=== PATIENT | male | born 1945 | race African-American/Black ===

== ENCOUNTER 2017-12-25 08:33 | Inpatient (IN) | payer MEDICARE ==
[2017-12-25] VITALS (14 sets, daily range): BP systolic 98–122; BP diastolic 63–93; BMI 33.9
[~2017-12-25] VITALS: Ht 185.4 cm; Wt 115.5 kg
--- NOTE | ~2017-12-25 | HEMODYNAMI ---
PATIENT:HELEN BROWN MEDICAL RECORD: [id number] : 47 LOCATION[facility] [address] [id number] ADMISSION DATE: 12/25/17 Generatedon:12/28/201712:57 Patient name: HELEN BROWN Patient #: [id number] SSN: : 1945 Date of study: 12/28/2017 Page: Of Hemodynamic Procedure Report Patient Data Patient Demographics Procedure consent was obtained First Name: HELEN Gender: Male Last Name: KEVIN : 1945 Patient #: [id number] Age: 72 year(s) Race: Black Additional ID: [id number] Contact details Address: [address] [place] [address] [employer] State: [place] City: [place] Zip code: [address] Past Medical History Allergies: No known allergies Admission Admission Data Admission Date: 12/25/2017 Admission Time: 11:13 Room #: D.2309 Lab Results Lab Result Date: 12/28/2017 Lab Result Time: 0:00 Biochemistry Name Units Result Min Max BUN mg/dl 19.3 --(----)*- 7 18 Creatinine mg/dl 42 --(----)-* 0.6 1.3 CBC Name Units Result Min Max Hematocrit % 33.8 *-(----)-- 42 54 Hemoglobin g/dl 11 *-(----)-- 13.5 17.5 Procedure Procedure Types Cath Procedure Diagnostic Procedure C [facility] w/Coronaries PCI Procedure Coronary Stent Coronary Stent Initial Procedure Description Procedure Date Procedure Date: 12/28/2017 Procedure Start Time: 12:38 Procedure End Time: 12:56 Procedure Staff Name Function Alo Daily MD Performing Physician Eduar Segura RT Monitor Jolene Gallo RT Scrub See Deras RN Nurse Procedure Data Cath Procedure Fluoroscopy Diagnostic fluoroscopy Total fluoroscopy Time: 3.5 time: 3.5 min min Diagnostic fluoroscopy Total fluoroscopy dose: 664 dose: 664 mGy mGy Contrast Material Contrast Material Type Amount (ml) Isovue 300 82 Entry Location Entry Primary Successful Side Size Upsize Upsize Entry Closure Succes sful Closure Location (Fr) 1 (Fr) 2 (Fr) Remarks Device Remarks Femoral Right 5 Fr 6 Fr Exoseal artery Short Estimated blood loss: 10 ml Diagnostic catheters Device Type Used For End Catheter Placement MULTIPACK Pigtail 5 Fr Procedure catheter MULTIPACK JL 4.0 5Fr Procedure catheter MULTIPACK 3DRC 5Fr Procedure catheter DIAGNOSTIC JL 5 5Fr Procedure catheter ([id number]) DIAGNOSTIC AR 1 MOD 5Fr Procedure catheter ([id number]) Procedure Complications No complications Procedure Medications Medication Administration Route Dosage Oxygen etCO2 Nasal cannula 2 l/min Heparin Flush Bag added to field 2 bags (1000units/500ml NS) 0.9% NaCl I.V. 100 ml/hr Fentanyl I.V. 50 mcg Versed I.V. 1 mg Fentanyl I.V. 50 mcg Versed I.V. 1 mg Heparin Bolus I.V. 4000 units Integrilin (Bolus I.V. 10.7 ml 2mg/ml) Integrilin (Bolus wasted 9.3 ml 2mg/ml) Plavix P.O. 600 mg Hemodynamics Rest HGB: 11 (g/dl) Heart Rate: 59 (bpm) Snapshots Pre Cath Intra NCS Post Cath Vital Signs Time Heart Resp SPO2 etCO2 NIBP (mmHg) Rhythm Pain Sedation Rate (ipm) (%) (mmHg) Status Level (bpm) 12:21:35 58 17 0 169/83(121) NSR 0 (11) 10(A) , No pain 12:26:26 59 16 0 164/80(110) NSR 0 (11) 10(A) , No pain 12:31:14 59 16 32.2 167/81(111) NSR 0 (11) 10(A) , No pain 12:36:03 60 16 100 38.9 159/76(115) NSR 0 (11) 10(A) , No pain 12:40:43 61 15 100 32.2 138/69(95) NSR 0 (11) 10(A) , No pain 12:45:28 60 16 100 32.9 148/65(102) NSR 0 (11) 9(A) , No pain 12:50:46 60 17 100 37.4 139/73(100) NSR 0 (11) 9(A) , No pain 12:55:28 60 16 100 0 156/69(104) NSR 0 (11) 10(A) , No pain Medications Time Medication Route Dose Verified Delivered Reason Notes Effectiveness by by 12:24:59 Oxygen etCO2 2 Alo Cui Per physician Nasal l/min Abimbola Deras RN cannula 12:25:09 Heparin Flush added 2 Alo Cui used for Bag to bags Abimbola Deras RN procedure (1000units/500ml field NS) 12:25:17 0.9% NaCl I.V. 100 Alo Cui Per physician ml/hr Abimbola Deras RN 12:36:52 Fentanyl I.V. 50 Alo Cui for sedation mcg Abimbola Deras RN 12:36:58 Versed I.V. 1 mg Alo Cui for sedation Abimbola Deras RN 12:39:16 Fentanyl I.V. 50 Alo Cui for sedation mcg Abimbola Deras RN 12:39:20 Versed I.V. 1 mg Alo Cui for sedation Abimbola Deras RN 12:48:52 Heparin Bolus I.V. 4000 Alo Cui for units Abimbola Deras RN anticoagulation 12:49:05 Integrilin I.V. 10.7 Alo Cui for (Bolus 2mg/ml) ml Abimbola Deras RN antiplatelet therapy 12:52:43 Integrilin wasted 9.3 Alo Cui for (Bolus 2mg/ml) ml Abimbola Deras RN antiplatelet therapy 12:56:51 Plavix P.O. 600 Alo Cui for mg Abimbola Deras RN antiplatelet therapy Procedure Log Time Note 11:58:26 Diagnostic Cath status Elective 11:58:28 See Deras RN sent for patient. Start room use. 11:58:29 Time tracking: Regular hours 11:58:32 Plan of Care:Hemodynamics will remain stable., Cardiac rhythm will remain stable., Comfort level will be maintained., Respiratory function will remain adequate., Patient/ family verbilizes understanding of procedure., Procedure tolerated without complication., Recovers from procedure without complications.. 12:14:17 Patient received from ICU to CCL 1 Alert and oriented. Tansferred to table in Supine position. 12:14:19 Warm blankets applied, and emile hugger turned on for patient comfort. 12::19 Correct patient and procedure confirmed by team. 12::20 Signed procedure consent form obtained from patient. 12::22 ECG and BP/O2 sat monitors applied to patient. 12::23 Full Disclosure recording started 12:20:33 Vital chart was started 12:22:12 Baseline sample Acquired. 12:24:41 Rhythm: sinus rhythm 12:24:59 Oxygen 2 l/min etCO2 Nasal cannula was administered by See Deras RN; Per physician; 12:25:09 Heparin Flush Bag (1000units/500ml NS) 2 bags added to field was administered by See Deras RN; used for procedure; 12::17 0.9% NaCl 100 ml/hr I.V. was administered by See Deras RN; Per physician; 12:27:07 H&P Date Dictated: 12/25/2017 Within 30 days and on chart., H&P Addendum completed by physician on day of procedure. (MUST COMPLETE FOR ALL OUTPATIENTS). 12:27:09 Pre-procedure instructions explained to patient. 12:27:09 Pre-op teaching completed and patient verbalized understanding. 12:27:30 Family in waiting room. 12:27:33 Patient NPO since Midnight. 12:27:42 Patient allergic to No known allergies 12:27:48 Is the patient allergic to Iodine/contrast media? No. 12:27:50 Is patient on blood thinner?No 12:27:53 Patient diabetic? No. 12:27:56 Previous problem with sedation/anesthesia? No ? 12:27:57 Snore? Yes 12:27:59 Sleep apnea? No 12:28:00 Deviated septum? No 12:28:00 Opens mouth fully? Yes 12:28:01 Sticks out tongue? Yes 12:28:03 Airway obstruction? No ? 12:28:04 Dentures? No ? 12:28:08 Pre procedure: right dorsailis pedis pulse 1+ Palpable, but thready & weak; easily obliterated 12:28:10 Patient pain scale 0/10 ?. 12:28:13 IV patent on arrival in right antecubital with 0.9% NaCl at [facility]. 12:32:20 Lab Result : Creatinine 42 mg/dl 12:32:20 Lab Result : BUN 19.3 mg/dl 12:32:21 Lab Result : Hemoglobin 11 g/dl 12:32:21 Lab Result : Hematocrit 33.8 % 12:32:23 Lab results completed and on chart. 12:32:26 Right groin area was prepped with chlora-prep and draped in sterile fashion 12:32:27 Alarms reviewed by R. N. 12:32:27 Sharps counted by scrub and verified by R.N. 12:32:29 Use device set Femoral Dx 12:32:30 ACIST Syringe (21647) opened to sterile field. 12:32:31 Bag Decanter (2002S) opened to sterile field. 12:32:31 Medline Cath Pack ([id number]) opened to sterile field. 12:32:33 ACIST Hand Control (22727) opened to sterile field. 12:32:33 ACIST Manifold (07619) opened to sterile field. 12:32:35 Tegaderm 4 x 4 (1626W) opened to sterile field. 12:32:35 PERCUTANEOUS ENTRY 19GA needle opened to sterile field. 12:32:36 DIAGNOSTIC Multipack 5Fr catheter set (OU2353) opened to sterile field. 12:32:37 DIAGNOSTIC WIRE .035 260cm J wire (817066) opened to sterile field. 12:32:49 IV Extension Set opened to sterile field. 12:32:58 SHEATH 5Fr Prelude ([id number]) opened to sterile field. 12:33:01 Zero performed for pressure channel P1 12:36:34 Physician arrived 12:36:35 --------ALL STOP TIME OUT------ 12:36:35 Final Timeout: patient, procedure, and site verified with staff and physician. All members of the team are in agreement. 12:36:42 Right groin site verified by team. 12:36:47 Physical assessment completed. ASA score P 2 - A patient with mild systemic disease as per Alo Daily MD. 12:36:52 Fentanyl 50 mcg I.V. was administered by See Deras RN; for sedation; 12:36:52 Sedation plan: IV Moderate Sedation Medication:Versed, Fentanyl 12:36:58 Versed 1 mg I.V. was administered by See Deras RN; for sedation; 12:37:58 Procedure started. 12:38:49 Local anesthetic to right femoral artery with Lidocaine 2% by Alo Daily MD.INITIAL ACCESS ONLY 12:38:57 A 5 Fr sheath was inserted into the Right Femoral artery 12:39:16 Fentanyl 50 mcg I.V. was administered by See Deras RN; for sedation; 12:39:16 A MULTIPACK Pigtail 5 Fr catheter was advanced over the wire and used for Procedure. 12:39:20 Versed 1 mg I.V. was administered by See Deras RN; for sedation; 12:39:31 LV gram done using DARLING 12:39:33 Injector settings: Ml/sec: 10, Volume: 20, 12:39:51 EF : 40 % 12:39:56 Catheter exchanged over wire. 12:40:09 A MULTIPACK JL 4.0 5Fr catheter was advanced over the wire and used for Procedure. 12:40:40 Catheter exchanged over wire. 12:41:45 A MULTIPACK 3DRC 5Fr catheter was advanced over the wire and used for Procedure. 12:41:59 Catheter exchanged over wire. 12:42:19 A DIAGNOSTIC JL 5 5Fr catheter ([id number]) was advanced over the wire and used for Procedure. 12:43:41 LCA angiography performed. 12:44:00 A DIAGNOSTIC AR 1 MOD 5Fr catheter ([id number]) was advanced over the wire and used for Procedure. 12:44:22 SHEATH 6Fr Prelude ([id number]) opened to sterile field. 12:44:23 INFLATOR Merit BasixCompak (FW2010) opened to sterile field. 12:44:31 CHOICE PT Extra Support 182cm wire ([id number]) opened to sterile field. 12:45:37 Catheter removed. 12:45:47 Sheath upsized to a 6 Fr Short. 12:46:11 GUIDE 6FR AR 2.0 catheter (HM0LS23) opened to sterile field. 12:46:16 6 Fr ar 2 guide catheter was inserted over the wire 12:47:23 choice pt wire advanced. 12:47:31 Wire advanced across lesion. 12:48:52 Heparin Bolus 4000 units I.V. was administered by See Deras RN; for anticoagulation; 12:49:05 Integrilin (Bolus 2mg/ml) 10.7 ml I.V. was administered by See Deras RN; for antiplatelet therapy; 12:49:13 Inflation Number: 1 A GODWIN RX 4.0 x 18 stent ([id number]) was prepped and advanced across the Undefined1. The stent was deployed at 13 JENSEN for 0:10 (min:sec). 12:49:33 Stent catheter was removed intact over wire. 12:49:34 Wire removed. 12:49:35 Guide catheter removed. 12:49:41 EXOSEAL 6Fr (EX600) opened to sterile field. 12:49:53 Sheath removed intact; hemostasis achieved with Exoseal to the Right Femoral artery. 12:49:55 Procedure ended.(Physican Out) 12:50:26 Fluoroscopy time 03.50 minutes. 12:50:30 Fluoroscopy dose: 664 mGy 12:50:30 Flurop Dose total: 664 12:52:43 Integrilin (Bolus 2mg/ml) 9.3 ml wasted was administered by See Deras RN; for antiplatelet therapy; 12:53:38 Contrast amount:Isovue 300 82ml. 12:53:41 Sharps counted by scrub and verified by R.N. 12:53:42 Insertion/operative site no bleeding no hematoma. 12:53:45 Post-op/insertion site Right Femoral artery dressed using a 4 x 4 and Tegaderm. 12:53:49 Post right femoral artery:stable, soft, clean and dry 12:53:51 Post Procedure Pulses reassessed and unchanged 12:53:53 Post-procedure physical assessment completed. ASA score P 2 - A patient with mild systemic disease as per Alo Daily MD. 12:53:58 Post procedure rhythm: unchanged. 12:54:01 Estimated blood loss: 10 ml 12:54:03 Post procedure instruction explained to patient.Patient verbalizes understanding. 12:54:04 Patient needs reinforcement of post procedure teaching. 12:54:14 Procedure type changed to Cath procedure, Diagnostic procedure, LHC, LHC w/Coronaries, PCI procedure, Coronary Stent, Coronary Stent Initial 12:55:50 Procedure and supply charges have been captured, reviewed, submitted and are correct. 12:55:52 Procedure Complication : No complications 12:55:54 Vital chart was stopped 12:55:54 See physician's report for complete and final results. 12:56:03 Report given to ICU. 12:56:06 Patient transfered to ICU with Stretcher. 12:56:08 Procedure ended. 12:56:08 Full Disclosure recording stopped 12:56:19 End room use (Document Last) 12:56:51 Plavix 600 mg P.O. was administered by See Deras RN; for antiplatelet therapy; Intervention Summary Intervention Notes Time ActionType Lesion and Equipment Used Action# Pressure Duration Attributes 12:49:13 Place stent Undefined1 GODWIN RX 4.0 x 1 13 00:10 18 stent ([id number]) Device Usage Item Name Manufacture Quantity Catalog Number Hospital Part Current M inimal Lot# / Charge Number Stock Stock Serial# Code ACIST Syringe Acist 1 94382 854650 162876 213957 2 0 (46752) [employer] Bag Decanter Microtek 1 2001S 759871 71038 367773 5 () Medical Inc. Medline Cath Cardinal 1 [id number] 623186 64190 600919 5 Pack Health ([id number]) ACIST Hand Acist 1 62761 892019 038799 057827 5 Control Medical (32129) Systems Inc ACIST Manifold Acist 1 10846 184115 688455 422455 5 (44676) Medical Systems Inc Tegaderm 4 x 4 3M 1 1626W 265521 793552 130489 5 (1626W) PERCUTANEOUS Cook Medical 1 F88714 944956 496188 5 ENTRY 19GA needle DIAGNOSTIC Cardinal 1 JN0817 592778 73668 854397 3 0 Multipack 5Fr Health catheter set (NP4149) DIAGNOSTIC St Navarro 1 131167 929631 612348 430767 3 0 WIRE .035 260cm J wire (696947) IV Extension Hospira 1 49284-95 433568 79851 675288 5 Set SHEATH 5Fr Merit 1 [id number] 726457 815796 957809 5 Prelude Medical ([id number]) MULTIPACK Cardinal 1 828603 5 Pigtail 5 Fr Health catheter MULTIPACK JL Cardinal 1 328989 5 4.0 5Fr Health catheter MULTIPACK 3DRC Cardinal 1 964485 5 5Fr catheter Health DIAGNOSTIC JL Cardinal 1 [id number] 171380 973655 822058 5 5 5Fr catheter Health (764018H) DIAGNOSTIC AR Cardinal 1 [id number] 339769 638932 919479 1 5 1 MOD 5Fr Health catheter (302043W) SHEATH 6Fr Merit 1 [id number] 033028 755656 530726 5 Prelude Medical ([id number]) INFLATOR Merit Merit 1 TZ7016 109625 061204 015309 1 5 [facility] (PA5019) CHOICE PT [place] 1 [id number] 402124 311105 064395 5 Extra Support Scientific 182cm wire (2214742Z0) GUIDE 6FR AR Medtronic 1 [id number] 973818 42315 099378 1 2.0 catheter (GK0FF26) GODWIN RX 4.0 x Medtronic 1 [id number] 537769 2066173 401650 5 [id number] 18 stent ([id number]) EXOSEAL 6Fr Cardinal 1 EX600 956114 666340 135709 1 0 (EX600) Health Signature Audit [place] Stage Time Signature Unsigned Intra-Procedure 12/28/2017 Eduar Segura 12:57:38 PM RT(R) Signatures Monitor : Eduar Segura RT Signature : Date : Time : [id number] [place] [address]
--- NOTE | ~2017-12-25 | HEMODYNAMI ---
PATIENT:HELEN BROWN MEDICAL RECORD: [id number] : 47 [address] [id number] ADMISSION DATE: 12/25/17 Generatedon:12/29/201712:47 Patient name: HELEN BROWN Patient #: [id number] SSN: : 1945 Date of study: 12/29/2017 Page: Of Hemodynamic Procedure Report Patient Data Patient Demographics Procedure consent was obtained First Name: HELEN Gender: Male Last Name: KEVIN : 1945 Patient #: [id number] Age: 72 year(s) Race: Black Additional ID: [id number] Contact details Address: [address] [place] [address] [place] State: [place] City: [place] Zip code: [address] Past Medical History Allergies: No known allergies Admission Admission Data Admission Date: 12/25/2017 Admission Time: 11:13 Room #: 2121 Lab Results Lab Result Date: 12/28/2017 Lab Result Time: 0:00 Biochemistry Name Units Result Min Max BUN mg/dl 19.3 --(----)*- 7 18 Creatinine mg/dl 42 --(----)-* 0.6 1.3 CBC Name Units Result Min Max Hematocrit % 33.8 *-(----)-- 42 54 Hemoglobin g/dl 11 *-(----)-- 13.5 17.5 Procedure Procedure Types Cath Procedure Diagnostic Procedure Sedation Charges Moderate Sedation up to 15 minutes PCI Procedure Coronary Stent Coronary Stent Initial Procedure Description Procedure Date Procedure Date: 12/29/2017 Procedure Start Time: 12:30 Procedure End Time: 12:44 Procedure Staff Name Function Alo Daily MD Performing Physician James Ayers RT Monitor Karl Kelly RN Nurse Magnolia Cartwright RT Scrub Eileen Aburto RT Monitor Procedure Data Cath Procedure Fluoroscopy Diagnostic fluoroscopy Total fluoroscopy Time: 2.5 time: 2.5 min min Diagnostic fluoroscopy Total fluoroscopy dose: 440 dose: 440 mGy mGy Contrast Material Contrast Material Type Amount (ml) Isovue 300 59 Entry Location Entry Primary Successful Side Size Upsize Upsize Entry Closure Succes sful Closure Location (Fr) 1 (Fr) 2 (Fr) Remarks Device Remarks Femoral Right 6 Fr Exoseal artery Short Estimated blood loss: 10 ml Procedure Complications No complications Procedure Medications Medication Administration Route Dosage Oxygen NC 2 l/min Lidocaine 2% added to field 20 Heparin Flush Bag added to field 2 bags (1000units/500ml NS) 0.9% NaCl I.V. 100 ml/hr Versed I.V. 1 mg Fentanyl I.V. 50 mcg Heparin Bolus I.V. 4000 units Versed I.V. 1 mg Fentanyl I.V. 50 mcg Hemodynamics Rest HGB: 11 (g/dl) Heart Rate: 72 (bpm) Snapshots Pre Cath Intra NCS Post Cath Vital Signs Time Heart Resp SPO2 etCO2 NIBP (mmHg) Rhythm Pain Sedation Rate (ipm) (%) (mmHg) Status Level (bpm) 12:14:06 71 16 96 0 147/75(114) NSR 0 (11) 10(A) , No pain 12:20:25 71 14 97 0 131/73(113) NSR 0 (11) 10(A) , No pain 12:24:39 73 17 96 0 146/73(112) NSR 0 (11) 10(A) , No pain 12:28:55 74 17 95 0 134/68(91) NSR 0 (11) 10(A) , No pain 12:33:11 74 15 95 0 127/68(90) NSR 0 (11) 9(A) , No pain 12:37:17 74 16 96 0 100/89(99) NSR 0 (11) 9(A) , No pain 12:42:03 74 19 96 0 149/76(105) NSR 0 (11) 10(A) , No pain Medications Time Medication Route Dose Verified Delivered Reason Notes Effectiveness by by 12:15:27 Oxygen NC 2 Alo Buffie used for l/min [facility]imbola Kelly rn hospital 12:15:34 Lidocaine 2% added 20ml Alo Prajapati for local to vial Abimbola Daily MD anesthetic field 12:15:40 Heparin Flush added 2 Alo Jasmineie used for Bag to bags [facility]imbola Kelly rn hospital (1000units/500ml field NS) 12:15:48 0.9% NaCl I.V. 100 Alo Barajas Per physician ml/hr Abimbola Kelly RN 12:28:55 Versed I.V. 1 mg Alo Jasmineie for sedation Abimbola Kelly RN 12:29:01 Fentanyl I.V. 50 Alo Kenroyie for sedation mcg Abimbola Kelly RN 12:33:44 Heparin Bolus I.V. 4000 Alo Jasmineie for verifi ed units Abimbola Kelly RN anticoagulation with dr daily 12:35:50 Versed I.V. 1 mg Alo Jasmineie for sedation Abimbola Kelly RN 12:35:53 Fentanyl I.V. 50 Alo Jasmineie for sedation mcg Abimbola Kelly RN Procedure Log Time Note 12:09:27 Informed consent obtained and on chart 12:10:02 PCI Cath Status : Elective 12:11:00 James Ayers RT(R) (CV) sent for patient. Start room use. 12:11:07 Time tracking: Regular hours 12:11:12 Plan of Care:Hemodynamics will remain stable., Cardiac rhythm will remain stable., Comfort level will be maintained., Respiratory function will remain adequate., Patient/ family verbilizes understanding of procedure., Procedure tolerated without complication., Recovers from procedure without complications.. 12:11:25 Patient received from PCU to CCL 2 Alert and oriented. Tansferred to table in Supine position. 12:11:49 Warm blankets applied, and emile hugger turned on for patient comfort. 12:11:49 Correct patient and procedure confirmed by team. 12:11:51 ECG and BP/O2 sat monitors applied to patient. 12:11:51 Vital chart was started 12:11:52 Baseline sample Acquired. 12:12:10 Rhythm: sinus rhythm 12:12:17 BBB 12:12:21 Full Disclosure recording started 12:12:50 H&P Date Dictated: 12/27/2017 Within 30 days and on chart.. 12:12:54 Pre-procedure instructions explained to patient. 12:12:54 Pre-op teaching completed and patient verbalized understanding. 12:12:57 Family in patients room. 12:13:00 Patient NPO since Breakfast. 12:13:11 Patient allergic to No known allergies 12:13:14 Is the patient allergic to Iodine/contrast media? No. 12:13:19 Is patient on blood thinner?Yes 12:13:29 ACC The patient was administered the following blood thiners within the last 24 hours: ACCPlavix 12:13:44 Patient diabetic? No. 12:13:51 ----Pre-sedation anethsthesia assessment.---- 12:13:54 Previous problem with sedation/anesthesia? No ? 12:13:56 Snore? Yes 12:13:58 Sleep apnea? No 12:14:00 Deviated septum? No 12:14:01 Opens mouth fully? Yes 12:14:01 Sticks out tongue? Yes 12:14:04 Airway obstruction? No ? 12:15:27 Oxygen 2 l/min NC was administered by Karl Kelly RN; used for procedure; 12:15:34 Lidocaine 2% 20ml vial added to field was administered by Alo Daily MD; for local anesthetic; 12:15:40 Heparin Flush Bag (1000units/500ml NS) 2 bags added to field was administered by Karl Kelly RN; used for procedure; 12:15:48 0.9% NaCl 100 ml/hr I.V. was administered by Karl Kelly RN; Per physician; 12:19:51 Patient pain scale 0/10 ?. 12:20:00 IV patent on arrival in right antecubital with 0.9% NaCl at [facility]. 12:20:07 Left groin area was prepped with chlora-prep and draped in sterile fashion 12:20:09 Alarms reviewed by R. N. 12:20:10 Sharps counted by scrub and verified by R.N. 12:20:22 Use device set ABIMBOLA PCI 12:21:00 INFLATOR Merit BasixCompak ([id number]) opened to sterile field. 12:22:20 SHEATH 6Fr Prelude ([id number]) opened to sterile field. 12:22:49 Medline Cath Pack ([id number]) opened to sterile field. 12:23:05 Use device set CATH PACK 12:23:19 DIAGNOSTIC WIRE .035 260cm J wire ([id number]) opened to sterile field. 12:23:20 Bag Decanter (2002S) opened to sterile field. 12:23:25 ACIST Manifold (55732) opened to sterile field. 12:23:26 ACIST Hand Control (37594) opened to sterile field. 12:23:28 ACIST Syringe (12233) opened to sterile field. 12:26:15 Zero performed for pressure channel P1 12::37 Zero performed for pressure channel P1 12:27:08 Physician arrived 12::09 --------ALL STOP TIME OUT------ 12:27:10 Final Timeout: patient, procedure, and site verified with staff and physician. All members of the team are in agreement. 12:27:16 Left groin site verified by team. 12:27:20 Physical assessment completed. ASA score P 2 - A patient with mild systemic disease as per Alo Daily MD. 12:27:25 Sedation plan: IV Moderate Sedation Medication:Versed, Fentanyl 12:28:55 Versed 1 mg I.V. was administered by Karl Kelly RN; for sedation; 12:29:01 Fentanyl 50 mcg I.V. was administered by Karl Kelly RN; for sedation; 12:29:32 Procedure started. 12:30:38 Local anesthetic to left femerol artery with Lidocaine 2% by Alo Daily MD.INITIAL ACCESS ONLY 12:31:16 GUIDE 6FR EBU 4.5 catheter ([id number]) opened to sterile field. 12:31:29 A 6 Fr Short sheath was inserted into the Right Femoral artery 12:31:58 CHOICE PT Extra Support 182cm wire ([id number]) opened to sterile field. 12:32:21 6 Fr ebu 4.5 guide catheter was inserted over the wire 12:32:29 eEX SUPPORT wire advanced. 12:32:54 Wire advanced across lesion. 12:33:44 Heparin Bolus 4000 units I.V. was administered by Karl Kelly RN; for anticoagulation; verified with dr daily 12:35:50 Versed 1 mg I.V. was administered by Karl Kelly RN; for sedation; 12:35:53 Fentanyl 50 mcg I.V. was administered by Karl Kelly RN; for sedation; 12:38:19 Inflation Number: 1 A INTEGRITY 4.0 x 18 stent ([id number]) was prepped and advanced across the Prox LAD. The stent was deployed at 13 JENSEN for 0:10 (min:sec). 12:39:07 Inflation Number: 1 A INTEGRITY RX 3.5 x 26 stent ([id number]) was prepped and advanced across the Mid LAD. The stent was deployed at 21 JENSEN for 0:13 (min:sec). 12:39:39 EXOSEAL 6Fr (EX600) opened to sterile field. 12:39:48 Wire removed. 12:39:49 Guide catheter removed. 12:40:00 Sheath removed intact; hemostasis achieved with Exoseal to the Right Femoral artery. 12:42:15 Procedure ended.(Physican Out) 12:42:31 Fluoroscopy time 02.50 minutes. 12:42:37 Flurop Dose total: 440 12:42:37 Fluoroscopy dose: 440 mGy 12:42:48 Contrast amount:Isovue 300 59ml. 12:42:51 Sharps counted by scrub and verified by R.N. 12:42:52 Insertion/operative site no bleeding no hematoma. 12:42:56 Post-op/insertion site Left Femoral artery dressed using a 4 x 4 and Tegaderm. 12:42:58 Post Procedure Pulses reassessed and unchanged 12:43:04 Post-procedure physical assessment completed. ASA score P 2 - A patient with mild systemic disease as per Alo Daily MD. 12:43:11 Post procedure rhythm: unchanged. 12:43:19 Estimated blood loss: 10 ml 12:43:22 Post procedure instruction explained to patient.Patient verbalizes understanding. 12:44:03 Procedure type changed to Cath procedure, Diagnostic procedure, Sedation Charges, Moderate Sedation up to 15 minutes, PCI procedure, Coronary Stent, Coronary Stent Initial 12:44:05 Procedure and supply charges have been captured, reviewed, submitted and are correct. 12:44:32 Procedure Complication : No complications 12:44:35 Vital chart was stopped 12:44:35 See physician's report for complete and final results. 12:44:45 Report given to Med II. 12:44:48 Patient transfered to Med II with Bed. 12:44:50 Procedure ended. 12:44:50 Full Disclosure recording stopped 12:44:53 End room use (Document Last) 12:45:33 ACC-PCI Only Patient was given prescriptions, or instructed by Alo Daily MD to start/continue the following medications upon discharge: Plavix Intervention Summary Intervention Notes Time ActionType Lesion and Equipment Action# Pressure Duration Attributes Used 12:38:19 Place stent Prox LAD INTEGRITY 1 13 00:10 4.0 x 18 stent ([id number]) 12:39:07 Place stent Mid LAD INTEGRITY RX 1 21 00:13 3.5 x 26 stent ([id number]) Device Usage Item Name Manufacture Quantity Catalog Number Hospital Part Current Mini [facility] Lot# / Charge Number Stock Stock Serial# Code INFLATOR Merit 1 [id number] 169380 042814 15 LeddarTech BasixCompak (UE9471) SHEATH 6Fr Merit 1 [id number] 535354 665412 750987 5 Prelude Medical ([id number]) Medline Cath Cardinal 1 [id number] 590860 76736 731432 5 Pack Health ([id number]) DIAGNOSTIC St Navarro 1 911634 333443 612036 592791 30 WIRE .035 260cm J wire (120327) Bag Decanter Microtek 1 2001S 109330 99707 766857 5 (2001S) Medical Inc. ACIST Acist 1 81904 311602 092931 616483 5 Manifold Medical (85005) Systems Inc ACIST Hand Acist 1 23138 721942 512203 795720 5 Control Medical (15985) Systems Inc ACIST Acist 1 96180 865252 539903 544423 20 Syringe Medical (77161) Systems Inc GUIDE 6FR Medtronic 1 [id number] 839455 80217 729036 0 EBU 4.5 catheter ([id number]) CHOICE PT Mumford 1 [id number] 534394 892469 800717 5 Extra Scientific Support 182cm wire ([id number]) INTEGRITY Medtronic 1 [id number] 434303 921326 754171 5 [id number] 4.0 x 18 stent ([id number]) INTEGRITY RX Medtronic 1 [id number] 654680 572813 022803 5 [id number] 3.5 x 26 stent ([id number]) EXOSEAL 6Fr Cardinal 1 EX600 995862 318891 247941 10 (EX600) Health Signature Audit [place] Stage Time Signature Unsigned Intra-Procedure 12/29/2017 Eileen Lamonte 12:47:23 PM RT(R) Signatures Monitor : James Ayers RT Signature : Date : Time : Monitor : Eileen Lamonte Signature : RT Date : Time : [address] [place] [address]
--- NOTE | ~2017-12-25 | EC ---
PATIENT:HELEN BROWN DATE OF SERVICE: 12/25/17 SEX: M MEDICAL RECORD: [id number] DATE OF : [birth year] LOCATION:D.M2 D.212 AGE OF PATIENT: 72 ADMISSION DATE: 12/25/17 REFERRING PHYSICIAN: INTERPRETING PHYSICIAN: MEGHANN DAILY MD ECHOCARDIOGRAM REPORT ECHO CHARGES 4 ECHO COMPLETE Date: CLINICAL DIAGNOSIS: HYPOTENSION ECHOCARDIOGRAPHIC MEASUREMENTS (adult normal given) AC root (d.<3.7cm) 3.0 cm LV Septum d (<1.2 cm> 1.4 cm Valve Excursion 1.6 cm LV Septum (systole) 1.7 cm Left Atria (s.<4.0cm> 4.3 cm LVPW d(<1.2cm) 1.5 cm RV (d.<2.3cm) 3.9 cm LVPW (sytole) 2.0 cm LV diastole(<5.6CM) 6.1 cm MV E-F(>70mm/sec) cm LV systole 3.8 cm LVOT Diameter 2.0 cm MV exc.(>10mm) 1.2 cm Est.ejection fraction (50-75%) % DOPPLER: LVIT cm/sec A 153 cm/sec E 85.0 cm/sec LA cm/sec RVSP 24 mmHg LVOT 86 cm/sec AOP1/2T 565 m/s Asc. Ao 243 cm/sec RVOT 94 cm/sec RA cm/sec PA 121 cm/sec AV Gradient Peak 23.65mmHg AV Mean 10.75mmHg AV Area 1.1 cm MV Gradient Peak 7.83 mmHg MV Mean 2.96 mmHg MV Area cm COMMENTS: Gear Straightener: Mellisa VU Centrifugal Separator: 1 Dr. Daily TAPE# PACS Pericardial Effusion N DATE OF SERVICE: FINDINGS: 1. Left ventricular chamber size is within normal limits. Left ventricular systolic function is normal. Overall ejection fraction is estimated at 60%. 2. Left atrium, right atrium, and right ventricle chamber sizes are within normal limit. 3. Valvular structures: Aortic valve demonstrates mild calcific aortic stenosis. Valve area calculates to 1.1 cm-squared. There is a gradient of 23 mm across the valve. The remaining valvular structures have normal structure ECHOCARDIOGRAM REPORT [id number] HELEN BROWN and motion. 4. Doppler interrogation elsewise reveals mild tricuspid regurgitation. No other valvular insufficiency or stenosis. 5. No evidence of pericardial effusion or left ventricular thrombus. TRANSINT:[id number] Voice Confirmation ID: [id number] DOCUMENT ID: [id number] MEGHANN DAILY MD at 1056 CC: [id number] DICTATION DATE: 12/28/17 1000 OPHTHALMOLOGY ASSISTANT: 12/28/17 1145 DIS IN 12/30/17 [place] [id number] [place] [id number]
--- NOTE | ~2017-12-25 | OP ---
PATIENT NAME: HELEN BROWN MEDICAL RECORD: [id number] :47 LOCATION:D.M2 D.2121 ADMISSION DATE:12/25/17 SURGEON: MEGHANN HSU MD DATE OF OPERATION: 12/29/2017 PROCEDURES: 1. PTCA and stent of LAD. 2. Selective coronary angiography. INDICATION: Angina and coronary artery disease. PROCEDURE IN DETAIL: After informed consent was obtained and after a detailed explanation of risks, benefits as well as alternative therapies, the patient elected to proceed with angiogram and angioplasty. The left femoral area was prepped and draped in normal sterile fashion. The left femoral artery was cannulated via modified Seldinger technique with placement of a 6-Yoruba sheath. All catheters exchanged through this sheath. FINDINGS: The left anterior descending has 2 areas of 90% to 95% stenosis. This was addressed with 4.0 x 18 and 3.5 x 26, both Integrity stents. Result was 0% residual stenosis. OVERALL IMPRESSION: Successful PTCA and stent of the LAD going from 95% initial stenosis to 0% residual stenosis. TRANSINT:[id number] Voice Confirmation ID: [id number] DOCUMENT ID: [id number] MEGHANN HSU MD at 1056 CC: [id number] DICTATION DATE: 12/29/17 1245 MEDICAL OFFICE ASSISTANT: 12/29/17 1258 DIS IN 12/30/[address] [address]
--- NOTE | ~2017-12-25 | OP ---
PATIENT NAME: HELEN BROWN MEDICAL RECORD: [id number] :47 LOCATION:D.M2 D.2121 ADMISSION DATE:12/25/17 SURGEON: MEGHANN HSU MD DATE OF OPERATION: 12/28/2017 PROCEDURES: 1. PTCA and stent of RCA. 2. Left heart catheterization. 3. Selective coronary angiography. 4. Left ventriculogram. INDICATION: Angina and ventricular tachycardia. PROCEDURE IN DETAIL: After informed consent was obtained and after detailed explanation of risks, benefits as well as alternative therapies, the patient elected to proceed with angiogram and angioplasty. The right femoral area is prepped and draped in normal sterile fashion. The right femoral artery was cannulated via modified Seldinger technique with placement of 6-Latvian sheath. All catheters exchanged through this sheath. FINDINGS: The left ventriculogram was performed in standard 30-degree DARLING view, reveals hypokinesis throughout all segments. Ejection fraction 35% to 40%. SELECTIVE CORONARY ANGIOGRAPHY: 1. Left main showed no significant angiographic disease. 2. Left anterior descending has 90% to 95% stenosis times 2 in the proximal vessel. 3. The left circumflex has mild irregularities, but no flow-limiting stenosis. 4. Right coronary has 98% stenosis proximally. PTCA AND STENT OF THE RIGHT CORONARY: Stent used is 4.0 x 18 mm Gene. Result was 0% residual stenosis. OVERALL IMPRESSION: Successful PTCA and stent of the RCA going from 98% initial stenosis to 0% residual stenosis. Plan for PTCA and stent of the LAD in the a.m. TRANSINT:[id number] Voice Confirmation ID: [id number] DOCUMENT ID: [id number] MEGHANN HSU MD at 1056 CC: [id number] DICTATION DATE: 12/28/17 1256 SECURITY SYSTEM SALES CONSULTANT: 12/28/17 1312 DIS IN 12/30/17 [place] [address]
[2017-12-25 09:14] LABS: BASOPHILS 0.2 % (0-2); EOSINOPHILS 6.4 % (0-7); HEMATOCRIT 33.8 % (42.0-54.0); LYMPHOCYTES 12.6 % (15-50); MCH 31.8 pg (26.0-34.0); MCHC 32.5 g/dL (31.0-37.0); MCV 97.7 fL (80.0-100.0); MEAN PLATELET VOLUME 9.8 fL (7.4-10.4); MONOCYTES 9.8 % (2-11); PLATELET COUNT 312 10x3/uL (130-400); RBC 3.46 10x6/uL (4.20-6.10); RDW 15.6 % (11.5-14.5)
[2017-12-25 09:29] LABS: ALBUMIN 2.6 g/dL (3.4-5.0); ALKALINE PHOSPHATASE 97 U/L (46-116); ALT (SGPT) 14 U/L (10-68); BILIRUBIN - TOTAL 0.31 mg/dL (0.2-1.3); CALC OSMOLALITY 286 mosm/kg (275-300); CALCIUM 7.7 mg/dL (8.5-10.1); CARBON DIOXIDE 28.4 mmol/L (21.0-32.0); CHLORIDE - SERUM 97 mmol/L (98-107); GLUCOSE 187 mg/dL (74-106); POTASSIUM - SERUM 3.8 mmol/L (3.5-5.1); PROTEIN - SERUM 7.3 g/dL (6.4-8.2); SODIUM 137 mmol/L (136-145); UREA NITROGEN 36 mg/dL (7-18); eGFR NON AFRICAN AMERICAN 4 mL/min (90-120)
[2017-12-25 09:44] LABS: CKMB 1.8 U/L (0.0-3.6); CREATINE KINASE 240 UL (21-232)
[2017-12-25 09:49] LABS: TROPONIN-I 0.212 ng/mL (0.000-0.060)
[2017-12-25] MEDS ORDERED: LEVEMIR100 U/M1 SC (12:39)
[2017-12-25] MEDS ORDERED: ZESTRIL40 MG PO (12:40)
[2017-12-25 12:46] LABS: NEUT - BF 12 %
[2017-12-25 12:47] LABS: EOS BF 3 %; MACROPHAGES BF 7 %
[2017-12-25 16:45] LABS: CREATINE KINASE 335 UL (21-232)
[2017-12-25 16:46] LABS: CKMB 2.3 U/L (0.0-3.6); TROPONIN-I 0.196 ng/mL (0.000-0.060)
[2017-12-25 22:10] LABS: CKMB 3.2 U/L (0.0-3.6); CREATINE KINASE 634 UL (21-232)
[2017-12-25 22:11] LABS: TROPONIN-I 0.174 ng/mL (0.000-0.060)
[2017-12-26] VITALS (24 sets, daily range): BP systolic 90–136; BP diastolic 50–88; BMI 35.3
[2017-12-26 03:46] LABS: BASOPHILS 0.1 % (0-2); EOSINOPHILS 5.7 % (0-7); HEMATOCRIT 30.2 % (42.0-54.0); HEMOGLOBIN 9.9 g/dL (13.5-17.5); IMMATURE GRANULOCYTES 0.5 % (0-5); LYMPHOCYTES 10.6 % (15-50); MCH 31.6 pg (26.0-34.0); MCHC 32.8 g/dL (31.0-37.0); MCV 96.5 fL (80.0-100.0); MEAN PLATELET VOLUME 9.7 fL (7.4-10.4); MONOCYTES 10.4 % (2-11); NEUTROPHILS 72.7 % (40-80); PLATELET COUNT 299 10x3/uL (130-400); RBC 3.13 10x6/uL (4.20-6.10); RDW 15.7 % (11.5-14.5); WBC 8.5 10x3/uL (4.8-10.8)
[2017-12-26 04:22] LABS: ALBUMIN 2.3 g/dL (3.4-5.0); ALKALINE PHOSPHATASE 84 U/L (46-116); ALT (SGPT) 12 U/L (10-68); CALC OSMOLALITY 290 mosm/kg (275-300); CALCIUM 7.2 mg/dL (8.5-10.1); CARBON DIOXIDE 26.1 mmol/L (21.0-32.0); CHLORIDE - SERUM 99 mmol/L (98-107); CREATININE - SERUM 13.2 mg/dL (0.6-1.3); GLUCOSE 174 mg/dL (74-106); MAGNESIUM - SERUM 1.7 mg/dL (1.8-2.4); PHOSPHOROUS 7.5 mg/dL (2.5-4.9); POTASSIUM - SERUM 4.1 mmol/L (3.5-5.1); PROTEIN - SERUM 6.4 g/dL (6.4-8.2); SODIUM 140 mmol/L (136-145); UREA NITROGEN 36 mg/dL (7-18); eGFR NON AFRICAN AMERICAN 4 mL/min (90-120)
[2017-12-26 04:31] LABS: CREATINE KINASE 1296 UL (21-232); TROPONIN-I 0.142 ng/mL (0.000-0.060)
[2017-12-27] VITALS (24 sets, daily range): BP systolic 92–146; BP diastolic 39–87; Ht 185.4 cm; Wt 115.5 kg
[2017-12-27 10:57] LABS: BASOPHILS 0.4 % (0-2); EOSINOPHILS 6.8 % (0-7); HEMATOCRIT 28.6 % (42.0-54.0); HEMOGLOBIN 9.6 g/dL (13.5-17.5); IMMATURE GRANULOCYTES 1.3 % (0-5); LYMPHOCYTES 12.8 % (15-50); MCH 32.3 pg (26.0-34.0); MCHC 33.6 g/dL (31.0-37.0); MCV 96.3 fL (80.0-100.0); MEAN PLATELET VOLUME 9.7 fL (7.4-10.4); MONOCYTES 8.2 % (2-11); NEUTROPHILS 70.5 % (40-80); PLATELET COUNT 286 10x3/uL (130-400); RBC 2.97 10x6/uL (4.20-6.10); RDW 15.5 % (11.5-14.5); WBC 7.8 10x3/uL (4.8-10.8)
[2017-12-27 11:12] LABS: ANION GAP 19.3 mmol/L (8-16); CARBON DIOXIDE 25.9 mmol/L (21.0-32.0); CREATININE - SERUM 14.1 mg/dL (0.6-1.3); POTASSIUM - SERUM 4.2 mmol/L (3.5-5.1)
[2017-12-27 11:14] LABS: CALCIUM 6.9 mg/dL (8.5-10.1)
[2017-12-28] VITALS (15 sets, daily range): BP systolic 112–170; BP diastolic 54–89
[2017-12-28 08:27] LABS: ALBUMIN 2.5 g/dL (3.4-5.0); BILIRUBIN - TOTAL 0.3 mg/dL (0.2-1.3); CALCIUM 7.2 mg/dL (8.5-10.1); CARBON DIOXIDE 21.7 mmol/L (21.0-32.0); MAGNESIUM - SERUM 1.8 mg/dL (1.8-2.4); PHOSPHOROUS 8.3 mg/dL (2.5-4.9); POTASSIUM - SERUM 4.7 mmol/L (3.5-5.1); PROTEIN - SERUM 6.4 g/dL (6.4-8.2)
[2017-12-29] VITALS: BP 144/69
[2017-12-29 04:00] VITALS: BP 166/75
[2017-12-29 08:34] VITALS: BP 156/75
[2017-12-29 11:52] VITALS: BP 142/68
[2017-12-29 20:00] VITALS: BP 172/75
[2017-12-30] VITALS: BP 153/79
[2017-12-30 04:00] VITALS: BP 158/61
[2017-12-30] MEDS ORDERED: LOPRESSOR25 MG PO (11:25)
[2017-12-30] MEDS ORDERED: ASPIRIN325 MG PO (11:26)
[2017-12-30] MEDS ORDERED: VANCOCIN HCL250 MG PO (11:31)
[2017-12-30 11:33] VITALS: BP 175/94
[2017-12-30] MEDS ORDERED: LEVAQUIN250 MG PO (11:41)
== END 2017-12-30 13:33 | disposition home or self-care (01) | DRG 246 ==
LOC: D.ER 08:33 → D.M2 11:13 → D.ICU 11:13 → D.EDHOLD 11:13 → D.ICU 11:21 → D.M2 12-28 17:48
PROVIDERS: Family Medicine; Internal Medicine Interventional Cardiology; Internal Medicine Nephrology
PROC: 4A023N7 Measurement of Cardiac Sampling and Pressure, Left Heart, Percutaneous Approach (ICD-10-PCS; 2017-12-28)
PROC: B2111ZZ Fluoroscopy of Multiple Coronary Arteries using Low Osmolar Contrast (ICD-10-PCS; 2017-12-28)
PROC: B2151ZZ Fluoroscopy of Left Heart using Low Osmolar Contrast (ICD-10-PCS; 2017-12-28)
PROC: 027034Z Dilation of Coronary Artery, One Artery with Drug-eluting Intraluminal Device, Percutaneous Approach (ICD-10-PCS; principal; 2017-12-28 11:15)
PROC: 02703EZ Dilation of Coronary Artery, One Artery with Two Intraluminal Devices, Percutaneous Approach (ICD-10-PCS; 2017-12-29)
DX: I25.119 Atherosclerotic heart disease of native coronary artery with unspecified angina pectoris (principal); N18.6 End stage renal disease; K65.9 Peritonitis, unspecified; I13.2 Hypertensive heart and chronic kidney disease with heart failure and with stage 5 chronic kidney disease, or end stage renal disease; I45.2 Bifascicular block; I95.9 Hypotension, unspecified; E11.22 Type 2 diabetes mellitus with diabetic chronic kidney disease; I50.9 Heart failure, unspecified; E83.39 Other disorders of phosphorus metabolism; D63.1 Anemia in chronic kidney disease; Z72.0 Tobacco use